=== PATIENT | female | born 1965 ===

== ENCOUNTER 2016-06-24 08:40 | Emergency (ER) | payer BC ==
[2016-06-24 08:42] VITALS: BMI 39.0
[2016-06-24 08:47] VITALS: RESP 18; TEMP 99.3; O2SAT 96
--- NOTE | 2016-06-24 09:15 | ED PDOC ---
Arrival/HPI - General Chief Complaint: Finger,Hand,&Wrist Time Seen by Provider: 06/24/16 09:13 Historian: Patient - History of Present Illness Narrative History of Present Illness (Text): 06/24/16 09:15 A 50 year old female, who denies any past medical history, presents to the emergency department complaining of worsening right wrist pain for the past 2 days. Pstates she has been using warm compresses and Ibuprofen, with no relief. Patient denies any trauma, injury, fever, nausea, vomiting, chest pain, shortness of breath, numbness, tingling, weakness or any other complaints. Patient has no history of PE and DVT. PMD: Dr. Bhat Time/Duration: Other (2 days) Symptom Course: Unchanged Quality: Other Context: Other Past Medical History - Provider Review Nursing Documentation Reviewed: Yes - Past History Past History: No Previous - Infectious Disease Hx of Infectious Diseases: None - Tetanus Immunization Tetanus Immunization: Unknown - Cardiac Hx Cardiac Disorders: No - Pulmonary Hx Respiratory Disorders: No - Neurological Hx Neurological Disorder: No - HEENT Hx HEENT Disorder: No - Renal Hx Renal Disorder: No - Endocrine/Metabolic Hx Endocrine Disorders: No - Hematological/Oncological Hx Blood Disorders: No - Integumentary Hx Dermatological Disorder: No - Musculoskeletal/Rheumatological Hx Musculoskeletal Disorders: Yes Hx Arthritis: Yes - Gastrointestinal Hx Gastrointestinal Disorders: No - Genitourinary/Gynecological Hx Genitourinary Disorders: No - Psychiatric Hx Substance Use: No - Surgical History Hx Orthopedic Surgery: Yes (LEFT KNEE) Hx Tubal Ligation: Yes - Anesthesia Hx Anesthesia: Yes Hx Anesthesia Reactions: No Hx Malignant Hyperthermia: No - Suicidal Assessment Feels Threatened In Home Enviroment: No Family/Social History - Physician Review Nursing Documentation Reviewed: Yes Family/Social History: No Known Family HX Smoking Status: Former Smoker Hx Alcohol Use: Yes Frequency of alcohol use: Socially Hx Substance Use: No Allergies/Home Meds Allergies/Adverse Reactions: Allergies No Known Allergies Allergy (Verified 07/26/15 18:03) Home Medications: Home Meds Medication Instructions Recorded Confirmed Cholecalciferol [Vitamin D] 1,000 iu PO BID 08/11/15 08/11/15 Ibuprofen [Motrin Tab] 800 mg PO PRN PRN 08/11/15 08/11/15 [place]-3/Dha/Epa/Fish Oil [Fish Oil 1 each PO BID 08/11/15 08/11/15 [place]-3 EC 1,200 mg] Review of Systems - Physician Review All systems were reviewed & negative as marked: Yes - Review of Systems Constitutional: absent: Fevers Respiratory: absent: SOB Cardiovascular: absent: Chest Pain Gastrointestinal: absent: Abdominal Pain, Diarrhea, Nausea, Vomiting Musculoskeletal: Other (Right wrist pain) Neurological: absent: Focal Weakness, Other (Numbess/Tingling) Physical Exam Vital Signs Reviewed: Yes Vital Signs Temp Pulse Resp BP Pulse Ox 06/24/16 11:32 76 18 152/86 H 96 06/24/16 10:40 86 18 158/98 H 96 06/24/16 08:40 99.3 F 93 H 18 161/133 H 96 Temperature: Afebrile Blood Pressure: Hypertensive Pulse: Tachycardic Respiratory Rate: Normal Appearance: Positive for: Well-Appearing, Non-Toxic, Comfortable Pain Distress: None Mental Status: Positive for: Alert and Oriented X 3 - Systems Exam Head: Present: Atraumatic, Normocephalic Pupils: Present: PERRL Extroacular Muscles: Present: EOMI Conjunctiva: Present: Normal Respiratory/Chest: Present: Clear to Auscultation, Good Air Exchange. No: Respiratory Distress, Accessory Muscle Use Cardiovascular: Present: Regular Rate and Rhythm, Normal S1, S2. No: Murmurs Upper Extremity: Present: Normal Inspection, NORMAL PULSES, Tenderness (Right wrist tenderness to palpation and movment), Swelling (to right wrist), Neurovascularly Intact, Capillary Refill < 2s. No: Cyanosis, Edema, Normal ROM (Limited ROM secondary to pain), Erythema, Temperature Abnormalties, Deformity Neurological: Present: GCS=15, CN II-XII Intact, Speech Normal Skin: Present: Warm, Dry, Normal Color. No: Rashes Psychiatric: Present: Alert, Oriented x 3, Normal Insight, Normal Concentration Medical Decision Making ED Course and Treatment: 06/24/16 09:15 Impression: A 50 year old female with right wrist pain Differential Diagnosis included but are not limited to: Wrist pain rule out Tendonitis vs. Arthritis Plan: -- Right wrist xray -- Toradol -- Reassess and disposition Progress Notes: Report Date : 06/24/2016 10:19:13 PROCEDURE: Right Wrist Radiographs. Dictator : Young Hobbs MD IMPRESSION: No fracture identified. Bowing of pronator fat pad suggests joint effusion/ hemarthrosis. There may be occult fracture or soft tissue injury. 06/24/16 11:30 Wrist placed in splint by EMT Johnny. Patient explained importance of follow up with PMD and orthopedics. Gave her Dr. Felipe's contact information who is insulation estimator. On re-evaluation, patient feels better and is in no acute distress. I have discussed the results and plan with the patient, who expresses understanding. Patient in agreement with plan to be discharged home. Patient is stable for discharge. Patient was instructed to follow up with physician or return if symptoms worsen or new concerning symptoms arise. - RAD Interpretation Radiology Orders: 06/24/16 09:14 WRIST, RIGHT 3 VIEWS [RAD] Stat - Medication Orders Current Medication Orders: Discontinued Medications Ketorolac Tromethamine (Toradol) 60 mg IM STAT STA Stop: 06/24/16 09:15 Last Admin: 06/24/16 09:24 Dose: 60 MG IM Administration Charges Document 06/24/16 09:24 EQ (Rec: 06/24/16 09:24 EQ [facility] [id number]) Injection Site MAR Injection Site Left Deltoid Charges for Administration # of IM Administrations 1 - Scribe Statement The provider has reviewed the documentation as recorded by the Kiloibreginaldo Lerma Provider Scribe Attestation: All medical record entries made by the Scribe were at my direction and personally dictated by me. I have reviewed the chart and agree that the record accurately reflects my personal performance of the history, physical exam, medical decision making, and the department course for this patient. I have also personally directed, reviewed, and agree with the discharge instructions and disposition. Disposition/Present on Arrival - Present on Arrival Any Indicators Present on Arrival: No History of DVT/PE: No History of Uncontrolled Diabetes: No Urinary Catheter: No History of Decub. Ulcer: No History Surgical Site Infection Following: None - Disposition Have Diagnosis and Disposition been Completed?: Yes Diagnosis: Wrist pain Disposition: HOME/ ROUTINE Disposition Time: 11:30 Patient Plan: Discharge Condition: IMPROVED Discharge Instructions (ExitCare): Wrist Injury (ED) Additional Instructions: Ms Baker, thank you for letting us take care of you today. Your provider was Dr. Mora. You were treated for Wrist Pain, Occult Fracture. The emergency medical care you received today was directed at your acute symptoms. If you were prescribed any medication, please fill it and take as directed. It may take several days for your symptoms to resolve. Return to the Emergency Department if your symptoms worsen, do not improve, or if you have any other problems. Please contact your doctor or call one of the physicians/clinics you have been referred to that are listed on the Patient Visit Information form that is included in your discharge packet. Bring any paperwork you were given at discharge with you along with any medications you are taking to your follow up visit. Our treatment cannot replace ongoing medical care by a primary care provider (PCP) outside of the emergency department. Thank you for allowing the [facility] team to be part of your care today. If you had an X-Ray or CT scan: A Radiologist will review the ED reading if any change in treatment is needed we will contact you. If you had a blood, urine, or wound culture: It will take several days for the results, if any change in treatment is needed we will contact you. If you had an STI test: It will take 48 hours for the results. Please call after 1 week if you have not heard back. Prescriptions: Ibuprofen [Motrin] 600 mg PO Q6 PRN #30 tab PRN Reason: Pain, Moderate (4-7) Referrals: Hiral Bhat DO [Primary Care Provider] - Follow up with primary Saeid Felipe MD [Staff Provider] - Follow up with primary Forms: WORK NOTE
--- NOTE | 2016-06-24 10:21 | RAD ---
PROCEDURE: Right Wrist Radiographs. There is low in HISTORY: wrist pain r/o fx COMPARISON: None. FINDINGS: BONES: Normal. No fracture. JOINTS: Normal. No dislocation. SOFT TISSUES: There is bowing of the pronator fat pad, suggesting possible occult fracture or soft tissue injury resulting in hemarthrosis. OTHER FINDINGS: None. IMPRESSION: No fracture identified. Bowing of pronator fat pad suggests joint effusion/ hemarthrosis. There may be occult fracture or soft tissue injury.z
[2016-06-24 11:33] VITALS: BP 152/86; PULSE 76
== END 2016-06-24 11:40 | disposition home or self-care (01) ==
LOC: ED 08:40
DX: M25.531 Pain in right wrist (principal)
CPT/HCPCS: 29130; 73110; 96372; 99285; J1885